=== PATIENT | female | born 1980 | race Two or more races ===

== ENCOUNTER 2021-06-28 17:43 | Emergency (ER) | payer MEDICARE, MEDICAID, SELFPAY ==
--- NOTE | ~2021-06-28 | XR_ITS ---
EXAMINATION: XR CHEST CLINICAL INFORMATION: Cough COMPARISON: None TECHNIQUE: Frontal view of the chest was obtained. FINDINGS: No convincing evidence for an acute process. Lung volumes are low but there is no obvious failure or infiltrate. No effusion. The mediastinal contours are comparable. XR/XR chest 1V IMPRESSION: No convincing evidence for an acute process.
[2021-06-28 18:34] VITALS: BP 149/92; PULSE 97; RESP 18; TEMP 37.3; O2SAT 97; BMI 37.8
[2021-06-28 19:37] VITALS: BP 158/97; PULSE 94; RESP 16; TEMP 37.2; O2SAT 98
[2021-06-28 20:01] LABS: Influenza A PCR NEGATIVE (Negative); Influenza B PCR NEGATIVE (Negative); Resp Syncy Virus RNA Qual PCR NEGATIVE (Negative); SARS COV2 PCR INHOUSE POSITIVE (Negative)
--- NOTE | 2021-06-28 20:14 | ED.URI ---
HPI - URI/Sore Throat General Chief Complaint: Upper Respiratory Symptoms Stated Complaint: COVID SYMPTOMS Time Seen by Provider: 06/28/21 19:19 Source: patient Limitations: no limitations History of Present Illness HPI Narrative: 41-year-old female presenting to the ED complaining of cough, body aches/myalgias, chills, SOB, chest discomfort when coughing, headaches x2 days. Admits is COVID-19 positive. Denies recent travel, LE edema, calf tenderness MD elicited complaint: cough Related Data Previous Rx's Medication Instructions Recorded acetaminophen 500 mg tablet 500 mg PO Q6H PRN #20 tab 06/28/21 (Tylenol Extra Strength) benzonatate 100 mg capsule 100 mg PO TID PRN #14 cap 06/28/21 (Tessalon Perles) fluticasone propionate 50 2 spray INTRANASAL DAILY #16 g 06/28/21 mcg/actuation nasal spray,suspension (Flonase Allergy Relief) Allergies Allergy/AdvReac Type Severity Reaction Status Date / Time penicillin V Allergy Unknown hives Verified 06/28/21 18:33 Penicillins [PENICILLINS] Allergy Unknown HIVES Verified 06/28/21 18:33 Sulfa (Sulfonamide Allergy Unknown HIVES Verified 06/28/21 18:33 Antibiotics) [SULFA (SULFONAMIDE ANTIBIOTICS)] sulfacetamide Allergy Unknown hives Verified 06/28/21 18:33 Review of Systems Review of Systems: Constitutional: + Fever, + Chills ENT/Mouth: No Ear Pain, + Nasal Congestion, No Sinus Pain, No Hoarseness, +sore throat, + Rhinorrhea, No Swallowing Difficulty Cardiovascular: + Chest Pain when coughing, + SOB Respiratory: + Cough, No Sputum, No Wheezing Gastrointestinal: No Nausea, No Vomiting, No Diarrhea, No Abdominal pain Musculoskeletal: No joint pain, + Myalgias Skin: No Skin Lesions, No rash Neuro: No Weakness, +headache Yes all other systems are reviewed and are negative PMFSH Past Medical History Attestation statement: The following information was validated with the patient. Social History Social History Advance Directives: No Advance Directives Information Provided: No Physical Exam Vital Signs: Vital Signs: Last Vital Signs Temp 98.9 F 06/28/21 19:37 Pulse 94 06/28/21 19:37 Resp 16 06/28/21 19:37 BP 158/97 H 06/28/21 19:37 Pulse Ox 98 06/28/21 19:37 Body Mass Index 37.8 Const: General: cooperative and healthy appearing Orientation/consciousness: patient oriented x3 Limitations: no limitations HENMT: Head: Yes normal to inspection Ears: hearing grossly normal bilaterally General nose exam: Normal external nose present Face and sinus: Yes normal facial exam Eyes: General: appearance normal, both eyes and all related structures EOM: EOMs intact bilaterally Neck: Neck: Yes normal visual inspection Resp: Effort & Inspection: normal respiratory effort Auscultation: clear to auscultation bilaterally, no rales, no rhonchi and no wheezes Cardio: Rate: regular rate Heart sounds: S1 normal heart sound present and S2 normal heart sound present GI: Inspection: Yes normal to inspection Palpation (GI): Soft to palpation, nontender, no guarding and not rigid Skin: Rashes: no rashes Wounds: no wounds Neuro: General: patient oriented x3 Gait exam (Neuro): Normal gait present Extrem: General: Yes normal to inspection, Yes no pedal edema and Yes no calf tenderness Course Course Course Narrative: -chest x-ray unremarkable Patient is COVID-19 positive. Results discussed with patient including worrisome signs and symptoms and strict return precautions MDM - URI/Sore Throat MDM Narrative Medical decision making narrative: 41-year-old female presenting to the ED complaining of cough, body aches/myalgias, chills, SOB, chest discomfort when coughing, headaches x2 days. On exam VSS, NAD, lungs CTA. Concern for COVID-19/viral syndrome. Will obtain CXR and COVID-19 testing Lab Data Labs: Lab Results 06/28/21 Range/Units 18:36 Coronavirus (PCR) POSITIVE A (Negative) Influenza Type A (PCR) NEGATIVE (Negative) Influenza Type B (PCR) NEGATIVE (Negative) RSV RNA Qual (PCR) NEGATIVE (Negative) Discharge Plan Discharge Clinical Impression: COVID-19 Patient Disposition: Home, Self-Care Instructions: COVID-19 (Coronavirus Disease 2019) (ED) Additional Instructions: YOU HAVE COVID-19 YOU NEED TO SELF ISOLATE FOR 10-14 DAYS TAKE TYLENOL AND MOTRIN AT HOME FOR BODY ACHES/FEVER MAKE SURE STAYING HYDRATED AT HOME REST STAY HYDRATED CALL YOUR DOCTOR FOR FOLLOW-UP NEEDED IF YOU DEVELOP CONSTANT WORSENING SHORTNESS BREATH, CHEST PAIN, OR FEVER UNRESOLVED WITH MEDICATIONS RETURN TO THE ED PLEASE BUY A PULSE OXIMETER AT HOME TO MONITOR HER OXYGEN, IF IT IS DROPPING INTO THE LOW 90'S OR BELOW 90 PLEASE RETURN TO THE EMERGENCY DEPARTMENT [facility] FOR COUGH, FLONASE A NASAL DECONGESTION CDC Guidelines for home isolation: - Stay away from others - WEAR A MASK if you are sick AND STAY HOME - Cover your mouth and nose with a tissue when you cough or sneeze. Dispose of tissues in a lined trash can and wash your hands immediately with soap and water for at least 20 seconds. If soap and water are not available, clean hands with alcohol-based hand aoc director combat plans officer that contains at least 60% alcohol. - Clean your hands often with soap and water for at least 20 seconds - Avoid touching your eyes, nose and mouth with unwashed hands - Do not share dishes, drinking glasses, cups, eating utensils, towels, or bedding with other people in your home. After using these items, wash them thoroughly with soap and water or put in the alteration worker. - Clean high-touch surfaces in your isolation area ( sick room and bathroom) every day; let a caregiver clean and disinfect high-touch surfaces in other areas of the home. Clean the area or item with soap and water or another detergent if it is dirty. Then, use a household disinfectant. - Limit contact with pets and animals: If you must care for a pet, wash your hands before and after interacting with them) Prescriptions: New benzonatate [[place] Perles] 100 mg capsule 100 mg PO TID PRN (Reason: cough) Qty: 14 RF: 0 acetaminophen [Tylenol Extra Strength] 500 mg tablet 500 mg PO Q6H PRN (Reason: pain or fever) Qty: 20 RF: 0 fluticasone propionate [Flonase Allergy Relief] 50 mcg/actuation spray,suspension 2 spray intranasal DAILY Qty: 16 RF: 0 Referrals: Brennon La MD [Primary Care Provider] - 1 week Stand Alone Forms: Work/School Release
== END 2021-06-28 20:33 | disposition home or self-care (01) ==
PROVIDERS: Emergency Provider Emergency Medicine; PCP Internal Medicine
DX: U07.1 COVID-19 (principal); R05 Cough; M79.10 Myalgia, unspecified site
CPT/HCPCS: 0241U; 36415; 71045; 99283

== ENCOUNTER 2023-12-22 21:57 | Emergency (ER) | payer MEDICARE, MEDICAID, SELFPAY ==
--- NOTE | ~2023-12-22 | US_ITS ---
EXAMINATION: US PELVIS CLINICAL INFORMATION: Pain. COMPARISON: Correlation made with CT performed 12/22/2023. TECHNIQUE: Ultrasound of the pelvis is performed using both transabdominal and transvaginal transducers along with Doppler. Transvaginal imaging is performed due to inadequate visualization transabdominally. FINDINGS: Uterus: The uterus is anteverted and measures 16.7 x 8.8 x 9.2 cm. Multiple uterine fibroids are noted measuring up to 5.8 cm distorting the endometrium. The double wall endometrial thickness is 1.1 mm. Adnexa: Both ovaries are visualized. There is normal color flow to the adnexa. There is no ovarian torsion. There is no pelvic ascites or fluid collection. Right ovary measures 3.3 x 2.3 x 2.7 cm. There is a 10.5 x 9.5 x 10.7 cm anechoic structure associated with the left ovary with posterior acoustic enhancement consistent with that of a cyst. The visualized left ovarian tissue appears to be within normal limits. US/US pelvic and transvaginal IMPRESSION: 1. Multiple uterine fibroids. 2. Large left ovarian cyst measuring up to 10.5 cm.
--- NOTE | ~2023-12-22 | CT_ITS ---
EXAMINATION: CT ABDOMEN AND PELVIS WITHOUT CONTRAST CLINICAL INFORMATION: Left flank pain. COMPARISON: None available. TECHNIQUE: Multidetector volumetric imaging was performed from the superior aspect of the liver through the pubic symphysis. Sagittal and coronal reformatted images were obtained on the technologist's workstation. This CT examination was performed using dose optimization techniques as appropriate, variously including the following: *Automated exposure control *Adjustment of mA and/or kV according to patient size (this includes techniques or standardized protocols for targeted exams where dose is matched to indication/reason for exam; i.e. extremities or head) *Use of iterative reconstruction technique DLP: 686 mGy-cm FINDINGS: LUNG BASES: The visualized lung bases are unremarkable. LIVER, GALLBLADDER, AND BILIARY TREE: The liver is normal in size, shape, and attenuation. No focal hepatic lesion or biliary ductal dilatation is present. The gallbladder is unremarkable with no evidence of radiopaque gallstones, gallbladder wall thickening, or obvious pericholecystic inflammatory changes. PANCREAS: Unremarkable. SPLEEN: Unremarkable. ADRENAL GLANDS: Unremarkable. KIDNEYS AND URETERS: The kidneys are normal in size, shape, and attenuation. No hydronephrosis, hydroureter, or calculi seen. No perinephric stranding. BLADDER: Unremarkable. GASTROINTESTINAL TRACT: The small and large bowel are unremarkable. The appendix is not identified. ABDOMINAL WALL: Umbilical hernia repair mesh is noted in place. LYMPH NODES: Normal. VASCULAR: Unremarkable. PELVIC VISCERA: There is a 12.4 x 8.5 x 10.5 cm low-density structure within the left adnexa abutting the uterus and left ovary with low attenuation values consistent with simple fluid. The uterus is prominent in size. OSSEOUS STRUCTURES: There is moderate L5-S1 disc degenerative change with a prominent posterior osteophyte and bilateral moderate neuroforaminal narrowing. CT/CT abdomen pelvis wo IV con IMPRESSION: 1. A 12.4 cm low-density structure within the left adnexa abutting the uterus and left ovary. This may represent a large ovarian cyst. Recommend further evaluation with pelvic ultrasound. 2. Moderate L5-S1 disc degenerative change with a prominent posterior osteophyte and bilateral moderate neuroforaminal narrowing. Fleischner guidelines were followed.
[2023-12-22 21:58] VITALS: BP 185/91; PULSE 74; RESP 14; TEMP 36.3; O2SAT 96; BMI 37.4
--- NOTE | 2023-12-22 22:12 | ED_ITS ---
HPI - Abdominal Pain General Chief Complaint: Abdominal Pain Stated Complaint: right side lwr abd to the back pain Time Seen by Provider: 12/22/23 22:03 Source: patient Mode of arrival: ambulatory Limitations: no limitations History of Present Illness HPI narrative: 43-year-old female with a history of chronic back pain and takes chronic opiates presents the ER with complaints of 4 days of left lower quadrant abdominal pain which radiates the left back with nausea. She denies any urinary symptoms, no diarrhea, constipation, vomiting, fevers or chills. Her last menstrual cycle was 1 week ago. Patient reports abdominal surgical history of umbilical hernia repair Related Data Previous Rx's Medication Instructions Recorded acetaminophen 500 mg tablet 500 mg PO Q6H PRN pain or fever 06/28/21 (Tylenol Extra Strength) #20 tabs benzonatate 100 mg capsule 100 mg PO TID PRN cough #14 caps 06/28/21 (Tessalon Perles) fluticasone propionate 50 2 spray intranasal DAILY #16 grams 06/28/21 mcg/actuation nasal spray,suspension (Flonase Allergy Relief) Allergies Allergy/AdvReac Type Severity Reaction Status Date / Time Penicillins [PENICILLINS] Allergy Unknown HIVES Verified 12/22/23 22:07 Sulfa (Sulfonamide Allergy Unknown HIVES Verified 12/22/23 22:07 Antibiotics) [SULFA (SULFONAMIDE ANTIBIOTICS)] sulfacetamide Allergy Unknown hives Verified 12/22/23 22:07 Review of Systems Review of Systems Yes all other systems are reviewed and are negative Constitutional: Reports no additional constitutional complaints, Denies body ache(s), Denies chills, Denies fever(s), Denies headache(s) and Denies weakness Eyes: Reports no additional eye complaints and Denies change in vision Reports system reviewed and no additional complaints, except as documented, Denies dizziness, Denies headache(s), Denies nasal congestion, Denies nasal discharge and Denies neck pain Cardiovascular: Reports no additional cardiovascular complaints, Denies chest pain, Denies leg edema and Denies dyspnea Respiratory: Reports no additional respiratory complaints, Denies cough and Denies dyspnea Gastrointestinal: Reports no additional gastrointestinal complaints, Reports abdominal pain, Denies diarrhea, Reports nausea and Denies vomiting Genitourinary: Reports no additional female genitourinary complaints, Denies dysuria, Denies pelvic pain, Denies flank pain, Denies urinary incontinence, Denies urinary hesitancy, Denies urinary urgency and Denies vaginal discharge Musculoskeletal: Reports no additional musculoskeletal complaints, Reports back pain, Denies arthralgias, Denies joint swelling, Denies neck pain, Denies numbness and Denies tingling Skin/Breast: Reports system reviewed and no additional complaints, except as docu and Denies rash Reports system reviewed and no additional complaints, except as documented, Denies Abnormal speech present, Denies dizziness, Denies headache(s), Denies numbness, Denies tingling and Denies weakness [facility] Social History Social History Smoked in Last 30 Days: No Use of substances other than those prescribed or required for medical reasons: No Advance Directives: No Advance Directives Information Provided: No Physical Exam ED Vital Signs: Vital Signs - 24 hr 12/22/23 21:58 12/23/23 01:04 Temperature 97.3 F 98.1 F Pulse Rate 74 62 Respiratory Rate 14 16 Blood Pressure 185/91 H 117/66 Pulse Oximetry 96 97 Oxygen Delivery Method Room Air Room Air BMI result Body Mass Index 37.4 Const General: cooperative, healthy appearing, comfortable and no acute distress Orientation/consciousness: patient oriented x3 Limitations: no limitations HENMT Head: Yes normal to inspection Ears: hearing grossly normal bilaterally General nose exam: Normal external nose present Face and sinus: Yes normal facial exam Mouth: Normal oral and palatal mucosa present Throat: Yes posterior oropharynx normal Eyes General: appearance normal, both eyes and all related structures Pupils: Equal, round and reactive pupils present Neck Neck: Yes normal visual inspection Chest Chest palpation & inspection: normal inspection of the chest Resp Effort & Inspection: normal respiratory effort Auscultation: clear to auscultation bilaterally Cardio Rate: regular rate Rhythm: regular rhythm Peripheral pulses: Peripheral pulses 2+ throughout GI Inspection: Yes normal to inspection Palpation (GI): Soft to palpation and Tenderness to palpation present (GI) (Tenderness the left lower quadrant with no rebound or guarding) Auscultation: normal bowel sounds General: Yes no CVA tenderness Back/Spine/Pelvis Back: no CVA tenderness Thoracic/Lumbar Spine: thoracic and lumbar spine normal to inspection Skin General skin exam: no rashes or lesions noted Neuro General: patient oriented x3, no focal motor deficits and normal sensation to monofilament Cranial nerves: Yes Equal, round and reactive pupils present Cognition (Neuro): normal cognition Speech: No Abnormal speech present Gait exam (Neuro): Normal gait present Motor exam (neuro): 5/5 motor strength present throughout Extrem General: Yes normal to inspection, Yes no pedal edema and Yes no calf tenderness Course Course Course Narrative: 2339-Ct shows MPRESSION: 1. A 12.4 cm low-density structure within the left adnexa abutting the uterus and left ovary. This may represent a large ovarian cyst. Recommend further evaluation with pelvic ultrasound. 2. Moderate L5-S1 disc degenerative change with a prominent posterior osteophyte and bilateral moderate neuroforaminal narrowing. Pelvic ultrasound ordered Reevaluation(s) Reevaluation #1: 0130-Sign out to Dr Alejo pending US results. Medical Decision Making Medical Decision Making [facility] Narrative: 43-year-old female with a history of chronic back pain and takes chronic opiates presents the ER with complaints of 4 days of left lower quadrant abdominal pain which radiates the left back with nausea. She denies any urinary symptoms, no diarrhea, constipation, vomiting, fevers or chills. Her last menstrual cycle was 1 week ago. Patient reports abdominal surgical history of umbilical hernia repair Tenderness on palpation to the left lower quadrant with no rebound or guarding. Will obtain labs, UA, CT Will provide IV fluids, antiemetic, analgesia Differential Diagnosis Differential Diagnoses: The differential diagnosis associated with the presentation includes Lumbar radiculopathy Pyelonephritis, renal colic, diverticular Admission/Observation Consideration of admission/observation: Escalation of care including admission/observation considered Lab Data [facility] Lab Attestation statement: I reviewed the patient's lab results. 12/22/23 22:19 12/22/23 22:19 Labs: Lab Results 12/22/23 12/22/23 Range/Units 22:19 23:22 WBC 6.7 (4.8-10.8) X10*3/uL RBC 4.70 (4.20-5.50) X10*6/uL Hgb 10.7 L (12.0-16.0) g/dl Hct 34.0 L (37.0-47.0) % MCV 72.3 L (80.0-98.0) fL MCH 22.8 L (27.0-33.0) pg MCHC 31.5 (31.0-35.0) g/dl RDW 16.6 H (11.0-16.0) % Plt Count 251 (160-400) X10*3/uL MPV 10.8 (9.4-12.3) fL Immature Gran % (Auto) 0.1 (0.0-0.4) % Neut % (Auto) 53.7 (45-73) % Lymph % (Auto) 36.8 (20-40) % [place] % (Auto) 6.1 (2-11) % Eos % (Auto) 2.7 (0-4) % Baso % (Auto) 0.6 (0-2) % Lymph # (Auto) 2.5 (1.2-4.9) X10*3/uL [place] # (Auto) 0.4 (0.1-1.2) X10*3/uL Eos # (Auto) 0.2 (0.0-0.4) X10*3/uL Baso # (Auto) 0.0 (0.0-0.2) X10*3/uL Abs Immat Gran (auto) 0.01 (0.00-0.03) X10*3/uL Absolute Neuts (auto) 3.6 (2.0-8.3) x10*3/uL Absolute Nucleated RBC 0.000 (0.0-0.012) X10*3/uL Nucleated RBC % (auto) 0.0 (0.0-0.2) /100WBC Sodium 139 (135-145) mmol/L Potassium 4.5 (3.3-5.1) mmol/L Chloride 104 (96-108) mmol/L Carbon Dioxide 27 (22-29) mmol/L Anion Gap 13 (12-20) BUN 9 (9-16) mg/dL Creatinine 1.05 (0.5-1.4) mg/dL Estim Creat Clear Calc 69.6 Estimated GFR 57 Random Glucose 98 (60-115) mg/dL Calcium 8.9 (8.4-10.2) mg/dL Total Bilirubin 0.5 (0.0-1.0) mg/dL AST 22 (5-31) U/L ALT 17 (0-31) U/L Alkaline Phosphatase 62 (39-117) U/L Total Protein 6.8 (6.5-8.0) g/dL Albumin 3.9 (3.5-5.0) g/dL Lipase 10 (8-78) U/L Urine Color Yellow Urine Appearance Clear Urine pH 8.0 (5.0-9.0) Ur Specific Kuna 1.010 (1.005-1.025) Urine Protein Negative (Neg-Trace) mg/dL Urine Glucose (UA) Negative (Negative) mg/dL Urine Ketones Negative (Negative) mg/dL Urine Blood Negative (Negative) Urine Nitrite Negative (Negative) Ur Leukocyte Esterase Negative (Negative) Urine RBC 0-2 (0-2) /HPF Urine WBC 0-5 (0-5) /HPF Ur Squamous Epith Cells 0-2 (0-2) /HPF Urine Bacteria None Seen (None Seen) Hyaline Casts 0-2 (0-2) /LPF Urine Test NEGATIVE (NEGATIVE) Independent Interpretation I performed an independent interpretation of an: Ultrasound and CT Scan Interpretation: I independently reviewed the CT scan agree with the radiology report Radiology Impression Discussion of test interpretation with radiology: I have reviewed the radiologist's reading. Radiologist Impression: [place] [id number] CT Scan Report Signed Patient: Ruben Garcia MR#: [id number] : 1980 Acct:[id number] Age/Sex: 43 / F ADM Date: 12/22/23 Loc: .ED Attending Dr: Ordering Physician: Poly Panda NP Date of Service: 12/22/23 Procedure(s): CT abdomen pelvis wo IV con Accession Number(s): [id number] cc: Brennon La III, MD; Poly Panda NP~ EXAMINATION: CT ABDOMEN AND PELVIS WITHOUT CONTRAST CLINICAL INFORMATION: Left flank pain. COMPARISON: None available. TECHNIQUE: Multidetector volumetric imaging was performed from the superior aspect of the liver through the pubic symphysis. Sagittal and coronal reformatted images were obtained on the technologist's workstation. This CT examination was performed using dose optimization techniques as appropriate, variously including the following: *Automated exposure control *Adjustment of mA and/or kV according to patient size (this includes techniques or standardized protocols for targeted exams where dose is matched to indication/reason for exam; i.e. extremities or head) *Use of iterative reconstruction technique DLP: 686 mGy-cm FINDINGS: LUNG BASES: The visualized lung bases are unremarkable. LIVER, GALLBLADDER, AND BILIARY TREE: The liver is normal in size, shape, and attenuation. No focal hepatic lesion or biliary ductal dilatation is present. The gallbladder is unremarkable with no evidence of radiopaque gallstones, gallbladder wall thickening, or obvious pericholecystic inflammatory changes. PANCREAS: Unremarkable. SPLEEN: Unremarkable. ADRENAL GLANDS: Unremarkable. KIDNEYS AND URETERS: The kidneys are normal in size, shape, and attenuation. No hydronephrosis, hydroureter, or calculi seen. No perinephric stranding. BLADDER: Unremarkable. GASTROINTESTINAL TRACT: The small and large bowel are unremarkable. The appendix is not identified. ABDOMINAL WALL: Umbilical hernia repair mesh is noted in place. LYMPH NODES: Normal. VASCULAR: Unremarkable. PELVIC VISCERA: There is a 12.4 x 8.5 x 10.5 cm low-density structure within the left adnexa abutting the uterus and left ovary with low attenuation values consistent with simple fluid. The uterus is prominent in size. OSSEOUS STRUCTURES: There is moderate L5-S1 disc degenerative change with a prominent posterior osteophyte and bilateral moderate neuroforaminal narrowing. CT/CT abdomen pelvis wo IV con IMPRESSION: 1. A 12.4 cm low-density structure within the left adnexa abutting the uterus and left ovary. This may represent a large ovarian cyst. Recommend further evaluation with pelvic ultrasound. 2. Moderate L5-S1 disc degenerative change with a prominent posterior osteophyte and bilateral moderate neuroforaminal narrowing. Fleischner guidelines were followed. Independent Historian Clinical information obtained from an independent historian. History obtained from or confirmed by: Friend Prescription Management I considered prescription management with: Pain Medication Medications Administered Discontinued Medications Generic Name Dose Route Start Last Admin Trade Name Freq PRN Reason Stop Dose Admin Sodium Chloride 1,000 mls @ 999 mls/hr 12/22/23 22:23 12/23/23 00:56 Ns IV 12/22/23 23:23 Infused .Q1H1M STA Infusion Ketorolac Tromethamine 15 mg 12/22/23 22:22 12/22/23 22:27 Ketorolac Tromethamine 15 Mg/Ml Vial IVPUSH 12/22/23 22:23 15 mg ONCE ONE Administration Morphine Sulfate 4 mg 12/22/23 22:22 12/22/23 22:27 Morphine Sulfate 4 Mg/Ml Cartridge IVPUSH 12/22/23 22:23 4 mg ONCE ONE Administration Protocol Ondansetron HCl 4 mg 12/22/23 22:22 12/22/23 22:27 Ondansetron Hcl 4 Mg/2 Ml Vial IVPUSH 12/22/23 22:23 4 mg ONCE ONE Administration Discharge Plan Discharge Clinical Impression: Ovarian cyst Patient Disposition: Still a Patient Instructions: Ovarian Cyst (ED) Additional Instructions: Take Motrin or Tylenol for pain as needed. You may also take the Percocet that you have at home Apply heat to the abdomen Follow-up with gynecology for persistent symptoms Prescriptions: No Action benzonatate [Tessalon Perles] 100 mg capsule 100 mg PO TID PRN (Reason: cough) Qty: 14 0RF acetaminophen [Tylenol Extra Strength] 500 mg tablet 500 mg PO Q6H PRN (Reason: pain or fever) Qty: 20 0RF fluticasone propionate [Flonase Allergy Relief] 50 mcg/actuation spray,suspension 2 spray intranasal DAILY Qty: 16 0RF Rx Instructions: administer into each nostril Referrals: Brennon La III, MD [Primary Care Provider] - 1 week
[2023-12-22 22:24] LABS: MANUAL DIFF FLAG NO
[2023-12-22 22:26] LABS: Basophils Percent Auto 0.6 % (0-2); Eosinophils Absolute Auto 0.2 X10*3/uL (0.0-0.4); Eosinophils Percent Auto 2.7 % (0-4); Hemoglobin 10.7 g/dl (12.0-16.0); Imm Gran Abs Auto 0.01 X10*3/uL (0.00-0.03); Imm Gran Pct Auto 0.1 % (0.0-0.4); Lymphocytes Absolute Auto 2.5 X10*3/uL (1.2-4.9); Lymphocytes Percent Auto 36.8 % (20-40); Mean Corpuscular HGB Conc 31.5 g/dl (31.0-35.0); Mean Corpuscular Hemoglobin 22.8 pg (27.0-33.0); Mean Corpuscular Volume 72.3 fL (80.0-98.0); Mean Platelet Volume 10.8 fL (9.4-12.3); Monocytes Absolute Auto 0.4 X10*3/uL (0.1-1.2); Monocytes Percent Auto 6.1 % (2-11); Neutrophils Absolute Auto 3.6 x10*3/uL (2.0-8.3); Neutrophils Percent Auto 53.7 % (45-73); Platelet Count 251 X10*3/uL (160-400); Red Cell Distribution Width 16.6 % (11.0-16.0); White Blood Count 6.7 X10*3/uL (4.8-10.8)
[2023-12-22] MEDS: Ketorolac Tromethamine 15 MG/ML VIAL IVPUSH (22:27)
[2023-12-22] MEDS: ondansetron HCL 4 MG/2 ML VIAL IVPUSH (22:27)
[2023-12-22] MEDS: Morphine Sulfate 4 MG/ML CARTRIDGE IVPUSH (22:27)
[2023-12-22] MEDS: 0.9 % Sodium Chloride 1,000 ML 999 ML IV (22:28)
[2023-12-22 22:39] LABS: Alanine Aminotransferase 17 U/L (0-31); Albumin Level 3.9 g/dL (3.5-5.0); Alkaline Phosphatase 62 U/L (39-117); Anion Gap 13 (12-20); Aspartate Amino Transferase 22 U/L (5-31); Bilirubin Total 0.5 mg/dL (0.0-1.0); Blood Urea Nitrogen 9 mg/dL (9-16); Calcium 8.9 mg/dL (8.4-10.2); Carbon Dioxide 27 mmol/L (22-29); Chloride 104 mmol/L (96-108); Creatinine Clr Calc Pharmacy 69.6; Estimated Glomerular Filt Rate 57; Glucose Random 98 mg/dL (60-115); Potassium 4.5 mmol/L (3.3-5.1); Sodium 139 mmol/L (135-145); Total Protein 6.8 g/dL (6.5-8.0)
[2023-12-22 22:49] LABS: Lipase 10 U/L (8-78)
[2023-12-22 23:38] LABS: Appearance Urine Clear; Color Urine Yellow; Glucose Urine UA Negative (Negative); Leukocyte Esterase Urine Negative (Negative); Nitrite Urine Negative (Negative); Urine Blood Negative (Negative); Urine Ketones Negative (Negative); Urine Protein Negative (Neg-Trace)
[2023-12-22 23:40] LABS: UPreg QC Valid YES; Urine Pregnancy NEGATIVE (NEGATIVE)
[2023-12-22 23:44] LABS: Bacteria Urine None Seen (None Seen); Hyaline Casts Urine 0-2 /LPF (0-2); RBC Urine 0-2 /HPF (0-2); Squamous Epithelial Cell Urine 0-2 /HPF (0-2); WBC Urine 0-5 /HPF (0-5)
[2023-12-23 01:04] VITALS: BP 117/66; PULSE 62; RESP 16; TEMP 36.7; O2SAT 97
--- NOTE | 2023-12-23 01:05 | MHC.EDTECH ---
This pct just assumed care of Pt ,vitals taken ,pt resting quietly in bed .
[2023-12-23] MEDS: oxyCODONE HCl Immed Release 5 MG TABLET 10 MG PO (01:59)
[2023-12-23 02:30] VITALS: BP 133/74; PULSE 59; RESP 16; TEMP 36.9; O2SAT 97
== END 2023-12-23 03:15 | disposition home or self-care (01) ==
PROVIDERS: Nurse Practitioner Family; Emergency Provider Emergency Medicine; PCP Internal Medicine
DX: N83.202 Unspecified ovarian cyst, left side (principal); R10.32 Left lower quadrant pain; R11.0 Nausea; G89.29 Other chronic pain; M54.50 Low back pain, unspecified; Z79.891 Long term (current) use of opiate analgesic
CPT/HCPCS: 36415; 74176; 76830; 76856; 80053; 81001; 81025; 83690; 85025; 96361; 96374; 96375; 99284; 99285; J1885; J2270; J2405

== ENCOUNTER 2024-12-20 18:57 | Emergency (ER) | payer OTHER, SELFPAY ==
--- NOTE | ~2024-12-20 | XR_ITS ---
CLINICAL HISTORY: cough 2 view chest x-ray Comparison: Chest x-ray from 06/28/2021 Findings: Low lung volumes with mild bibasilar atelectasis/pneumonitis. No lobar consolidation. No pneumothorax or pleural effusion. Imaged mediastinum and imaged osseous structures are unchanged. IMPRESSION: Low lung volumes with mild bibasilar atelectasis and/or pneumonitis. This document has been electronically signed by: Tong Colon MD on 12/20/2024 20:47:13
[2024-12-20 19:01] VITALS: BP 153/106; PULSE 115; RESP 16; TEMP 37.6; O2SAT 97; BMI 37.8
--- NOTE | 2024-12-20 19:02 | ED_ITS ---
HPI - General Adult General Chief complaint: Upper Respiratory Symptoms Stated complaint: nausea ? flu Time Seen by Provider: 12/20/24 21:24 Source: patient Mode of arrival: ambulatory Limitations: no limitations History of Present Illness ED Provider: Dr. Randa Hearn HPI narrative: Patient comes to the emergency room complaining of body aches, lightheadedness, vomiting starting today. Patient denies any near syncopal episodes or syncopal episodes. Patient denies any chest pain or shortness of breath. Related Data Previous Rx's ?Medication ?Instructions ?Recorded acetaminophen 500 mg tablet 500 mg PO Q6H PRN pain or fever 06/28/21 (Tylenol Extra Strength) #20 tabs benzonatate 100 mg capsule 100 mg PO TID PRN cough #14 caps 06/28/21 (Tessalon Perles) fluticasone propionate 50 2 spray intranasal DAILY #16 grams 06/28/21 mcg/actuation nasal spray,suspension (Flonase Allergy Relief) ibuprofen 600 mg tablet 600 mg PO Q6H PRN fever or pain 12/23/23 #30 tabs acetaminophen 500 mg tablet 500 mg PO Q6H PRN fever or pain 12/20/24 #20 tabs oseltamivir 75 mg capsule (Tamiflu) 75 mg PO BID 5 days #10 caps 12/20/24 Allergies Allergy/AdvReac Type Severity Reaction Status Date / Time Penicillins [PENICILLINS] Allergy Unknown HIVES Verified 12/20/24 19:07 Sulfa (Sulfonamide Allergy Unknown HIVES Verified 12/20/24 19:07 Antibiotics) [SULFA (SULFONAMIDE ANTIBIOTICS)] sulfacetamide Allergy Unknown hives Verified 12/20/24 19:07 Review of Systems 2 Review of Systems: Constitutional : No Weight loss, complaining of generalized malaise, chills, fatigue, myalgias ENT/Mouth : No Hearing loss, No Ear Pain, No Nasal Congestion, No Sinus Pain, No Hoarseness, No sore throat, No Rhinorrhea, No Swallowing Difficulty Eyes: No Eye Pain, No Swelling, No Redness, No Foreign Body, No Discharge, No Vision Changes Cardiovascular : No Chest Pain, No SOB, No Dyspnea on Exertion, No Orthopnea, No Edema, No Palpitations Respiratory : No Cough, No Sputum, No Wheezing, No Smoke Exposure, No Dyspnea Gastrointestinal : No Nausea, No Vomiting, No Diarrhea, No Constipation, No abdominal Pain, No Hematochezia, No Melena Genitourinary : no irregular bleeding, No Dysuria, No Urinary Frequency, No Hematuria, No Urinary Incontinence, No Urgency, No Flank Pain, No Urinary Flow Changes, No Hesitancy Musculoskeletal : No joint pain, complaining of diffuse Myalgias, No Joint Swelling Skin : No Skin Lesions, No rash Neuro : No Weakness, No Numbness, No Paresthesias, No Loss of Consciousness, No Dizziness, No Headache Psych : No Anxiety/Panic, No Depression, No SI/HI/AH/VH, No Social Issues, Heme/Lymph: No Bruising, No Bleeding,No Lymphadenopathy Endocrine : No Polyuria, No Polydipsia, No Temperature Intolerance [facility] Social History Social History Unable to assess alcohol history related to: Unknown Use of substances other than those prescribed or required for medical reasons: Unknown Advance Directives: No Advance Directives Information Provided: Yes Patient : No Physical Exam ED Vital Signs: Vital Signs - 24 hr 12/20/24 19:01 12/20/24 22:02 Temperature 99.6 F Pulse Rate 115 H Respiratory Rate 16 Blood Pressure 153/106 H Pulse Oximetry 97 97 Oxygen Delivery Method Room Air Room Air BMI result Body Mass Index 37.8 Const Other: Appearance: Alert. Oriented X3. No acute distress. Eyes: Pupils equal, round and reactive to light. ENT: Pharynx normal. Neck: Normal inspection. Neck supple. No lymph nodes noted. No crepitus CVS: Normal heart rate and rhythm. Pulses normal. Normal S1 and S2 Respiratory: No respiratory distress. Breath sounds normal. No Wheezing. No rales Abdomen: Soft and nontender. No rigidity. No distention. Skin: Skin warm and clammy. Normal skin color. Normal skin turgor. Extremities: No lower extremity edema. No Lacerations. No Rash Neuro: Oriented X 3. No motor deficit. No sensory deficit. Moving all extremities. No slurred speech. CN 2 through 12 grossly intact Psych: calm, cooperative, normal affect Course Course Course Narrative: This is an RME performed by Kathryn Miramontes [employer]: Additional HPI, ROS, PE not included below will be deferred to primary provider. Patient is a 44-year-old female who presents emergency department for evaluation of nausea, vomiting, inability to tolerate oral intake, body aches, dizziness, headache, cough, congestion. Denies any known sick contacts. She was tachycardic in the 1 teens, temp of 99.6 degrees, hypertensive 169/102 Plan: Viral serologies, grp A strep, serum labs, EKG, acetaminophen given tachycardia and low-grade temp Medications Administered Discontinued Medications Generic Name Dose Route Start Last Admin Trade Name Darrion PRN Reason Stop Dose Admin Acetaminophen 975 mg 12/20/24 19:07 12/20/24 19:10 Acetaminophen 325 Mg Tablet PO 12/20/24 19:08 975 mg ONCE ONE Administration Medical Decision Making Medical Decision Making [facility] Narrative: My interpretation of labs: Patient tested positive for influenza a, chest x-ray does not show any consolidates. Patient's oxygen saturation constant in the high 90s. Differential Diagnosis Differential Diagnoses: The differential diagnosis associated with the presentation includes (Influenza, COVID, RSV, pneumonia) Lab Data [facility] Lab Attestation statement: I reviewed the patient's lab results. 12/20/24 19:40 12/20/24 19:40 Labs: Lab Results 12/20/24 Range/Units 19:40 WBC 8.1 (4.8-10.8) X10*3/uL RBC 5.64 H (4.20-5.50) X10*6/uL Hgb 15.0 D (12.0-16.0) g/dl Hct 44.6 D (37.0-47.0) % MCV 79.1 L (80.0-98.0) fL MCH 26.6 L (27.0-33.0) pg MCHC 33.6 (31.0-35.0) g/dl RDW 13.2 (11.0-16.0) % Plt Count 115 L D (160-400) X10*3/uL MPV 12.0 (9.4-12.3) fL Immature Gran % (Auto) 0.6 H (0.0-0.4) % Neut % (Auto) 84.9 H (45-73) % Lymph % (Auto) 7.6 L (20-40) % Maries % (Auto) 5.4 (2-11) % Eos % (Auto) 1.0 (0-4) % Baso % (Auto) 0.5 (0-2) % Lymph # (Auto) 0.6 L (1.2-4.9) X10*3/uL Maries # (Auto) 0.4 (0.1-1.2) X10*3/uL Eos # (Auto) 0.1 (0.0-0.4) X10*3/uL Baso # (Auto) 0.0 (0.0-0.2) X10*3/uL Abs Immat Gran (auto) 0.05 H (0.00-0.03) X10*3/uL Absolute Neuts (auto) 6.9 (2.0-8.3) x10*3/uL Absolute Nucleated RBC 0.000 (0.0-0.012) X10*3/uL Nucleated RBC % (auto) 0.0 (0.0-0.2) /100WBC Smear Tech's Comments VERIFIED Sodium 138 (135-145) mmol/L Potassium 4.4 (3.3-5.1) mmol/L Chloride 109 H (96-108) mmol/L Carbon Dioxide 17 L (22-29) mmol/L Anion Gap 16 (12-20) BUN 8 L (9-16) mg/dL Creatinine 0.87 (0.5-1.4) mg/dL Estim Creat Clear Calc 87.0 Estimated GFR > 60 Random Glucose 117 H (60-115) mg/dL Calcium 9.1 (8.4-10.2) mg/dL Total Bilirubin 0.9 (0.0-1.0) mg/dL AST 39 H (5-31) U/L ALT 27 (0-31) U/L Alkaline Phosphatase 64 (39-117) U/L Total Protein 8.0 (6.5-8.0) g/dL Albumin 4.2 (3.5-5.0) g/dL Lipase 10 (8-78) U/L Influenza Type A (PCR) POSITIVE A (Negative) Influenza Type B (PCR) NEGATIVE (Negative) RSV RNA Qual (PCR) NEGATIVE (Negative) SARS-CoV-2 RNA (RT-PCR) NEGATIVE (Negative) S. pyogenes GrpA ALENA Negative (Negative) Discharge Plan Discharge Clinical Impression: Influenza Patient Disposition: Home, Self-Care Instructions: Influenza (ED) Additional Instructions: Please follow-up with your primary care physician tomorrow. If you have any worsening or new symptoms, please return to the emergency room or call 911 Prescriptions: New oseltamivir [Tamiflu] 75 mg capsule 75 mg PO BID 5 Days Qty: 10 0RF acetaminophen 500 mg tablet 500 mg PO Q6H PRN (Reason: fever or pain) Qty: 20 0RF No Action benzonatate [Tessalon Perles] 100 mg capsule 100 mg PO TID PRN (Reason: cough) Qty: 14 0RF acetaminophen [Tylenol Extra Strength] 500 mg tablet 500 mg PO Q6H PRN (Reason: pain or fever) Qty: 20 0RF fluticasone propionate [Flonase Allergy Relief] 50 mcg/actuation spray,suspension 2 spray intranasal DAILY Qty: 16 0RF Rx Instructions: administer into each nostril ibuprofen 600 mg tablet 600 mg PO Q6H PRN (Reason: fever or pain) Qty: 30 0RF Print Language: Tajik
--- NOTE | 2024-12-20 19:07 | ECG_ITS ---
Test Reason : DIZZINESS Blood Pressure : */* mmHG Vent. Rate : 112 BPM Atrial Rate : 112 BPM P-R Int : 178 ms QRS Dur : 90 ms QT Int : 316 ms P-R-T Axes : 23 43 10 degrees QTcB Int : 431 ms Sinus tachycardia Otherwise normal ECG No previous ECGs available Referred By: Cherie Miramontes Electronically Signed By: AME HOOKS MD
[2024-12-20] MEDS: Acetaminophen 325 MG TABLET 975 MG PO (19:10)
[2024-12-20 19:54] LABS: Basophils Percent Auto 0.5 % (0-2); Eosinophils Absolute Auto 0.1 X10*3/uL (0.0-0.4); Hematocrit 44.6 % (37.0-47.0); Imm Gran Abs Auto 0.05 X10*3/uL (0.00-0.03); Imm Gran Pct Auto 0.6 % (0.0-0.4); Lymphocytes Absolute Auto 0.6 X10*3/uL (1.2-4.9); Lymphocytes Percent Auto 7.6 % (20-40); MANUAL DIFF FLAG SCAN; Mean Corpuscular HGB Conc 33.6 g/dl (31.0-35.0); Mean Corpuscular Hemoglobin 26.6 pg (27.0-33.0); Mean Corpuscular Volume 79.1 fL (80.0-98.0); Monocytes Absolute Auto 0.4 X10*3/uL (0.1-1.2); Monocytes Percent Auto 5.4 % (2-11); Neutrophils Absolute Auto 6.9 x10*3/uL (2.0-8.3); Neutrophils Percent Auto 84.9 % (45-73); PLT CLUMP 1; Red Blood Count 5.64 X10*6/uL (4.20-5.50); Red Cell Distribution Width 13.2 % (11.0-16.0); SCAN SMEAR FLAG 1
[2024-12-20 19:55] LABS: White Blood Count 8.1 X10*3/uL (4.8-10.8)
[2024-12-20 19:58] LABS: IDNOW Serial# 58CA691E; Strep A Nucleic Acid Negative (Negative)
[2024-12-20 20:05] LABS: Alanine Aminotransferase 27 U/L (0-31); Albumin Level 4.2 g/dL (3.5-5.0); Alkaline Phosphatase 64 U/L (39-117); Anion Gap 16 (12-20); Aspartate Amino Transferase 39 U/L (5-31); Bilirubin Total 0.9 mg/dL (0.0-1.0); Blood Urea Nitrogen 8 mg/dL (9-16); Calcium 9.1 mg/dL (8.4-10.2); Carbon Dioxide 17 mmol/L (22-29); Chloride 109 mmol/L (96-108); Estimated Glomerular Filt Rate > 60; Glucose Random 117 mg/dL (60-115); Lipase 10 U/L (8-78); Potassium 4.4 mmol/L (3.3-5.1); Sodium 138 mmol/L (135-145)
[2024-12-20 20:16] LABS: Platelet Count 115 X10*3/uL (160-400)
[2024-12-20 20:17] LABS: SLIDE REVIEW VERIFIED
[2024-12-20 20:23] LABS: Influenza A PCR POSITIVE (Negative); Influenza B PCR NEGATIVE (Negative); Resp Syncy Virus RNA Qual PCR NEGATIVE (Negative); SARS COV2 PCR INHOUSE NEGATIVE (Negative)
[2024-12-20 22:02] VITALS: O2SAT 97
[2024-12-20 22:22] VITALS: BP 00/00; PULSE 65; RESP 16; TEMP 37.1; O2SAT 97
== END 2024-12-20 22:23 | disposition home or self-care (01) ==
PROVIDERS: Nurse Practitioner Family; Emergency Provider Emergency Medicine; PCP Internal Medicine
DX: J10.1 Influenza due to other identified influenza virus with other respiratory manifestations (principal); M79.10 Myalgia, unspecified site; R42 Dizziness and giddiness; R11.2 Nausea with vomiting, unspecified; R00.0 Tachycardia, unspecified; Z79.899 Other long term (current) drug therapy; Z03.818 Encounter for observation for suspected exposure to other biological agents ruled out
CPT/HCPCS: 0241U; 36415; 71046; 80053; 83690; 85025; 87651; 93005; 99283; 99284

== ENCOUNTER → 2024-12-20 19:03 | Outpatient (BNV) | payer MEDICARE, MEDICAID, SELFPAY | PROVIDERS: Visit Provider Radiology Neuroradiology | DX: R05.9 Cough, unspecified (principal) | CPT/HCPCS: 71046 ==

== ENCOUNTER → 2024-12-20 19:07 | Outpatient (BNV) | payer OTHER, SELFPAY | PROVIDERS: Emergency Provider Emergency Medicine; PCP Internal Medicine; Visit Provider Internal Medicine Cardiovascular Disease | DX: R42 Dizziness and giddiness (principal); R00.0 Tachycardia, unspecified | CPT/HCPCS: 93010 ==

== ENCOUNTER 2025-04-19 10:17 | Outpatient (REF) | payer OTHER, SELFPAY ==
--- OUTSIDE RECORDS SUMMARY | 2025-04-19 11:27 | XMS_ITS | Clinical Summary ---
Author Organization [facility] Address [address] [place] [address] Phone Care Team Providers Care Production Recorder Name Role Phone Brennon La MD Primary Care Provider [phone] Allergies Active Allergy Reactions Criticality Noted Date Comments Penicillin G Potassium 01/26/2009 Penicillins: Childhood/ hives Sulfacetamide Sodium 01/26/2009 Sulfate: Childhood/ hives Medications cetirizine (ZyrTEC) 10 mg capsule Take 1 capsule (10 mg total) by mouth 1 (one) time each day. 4 Active cholecalciferol (VITAMIN D-3) 50 mcg (2,000 unit) tablet Take 1 tablet (2,000 Units total) by mouth 1 (one) time each day. 3 Active pregabalin (LYRICA) 50 mg capsule Take 1 capsule (50 mg total) by mouth 1 (one) time each day in the evening. 4 Active ibuprofen (ADVIL,MOTRIN) 800 mg tablet Take 1 tablet (800 mg total) by mouth every 8 (eight) hours if needed for mild pain. Take by mouth every 8 (eight) hours as needed for pain. 90 tablet 1 5 Active oxyCODONE-aceta minophen (PERCOCET) 5-325 mg per tablet Take 1 tablet by mouth 4 (four) times a day. Take 1 Tablet by mouth 4 times daily. Max Daily Amount: 4 tablets 112 tablet 5 Active oxyCODONE-aceta minophen (PERCOCET) 5-325 mg per tablet Take 1 tablet by mouth 4 (four) times a day. Take 1 Tablet by mouth 4 times daily. Max Daily Amount: 4 tablets 112 tablet 5 04/02/20 25 Discontinu ed(Reorder ) Active Problems Problem Noted Date Diagnosed Date Prediabetes 09/29/2024 Chronic ear infection 08/19/2024 Overview (08/19/2024): pe tubes in place Chronic low back pain 08/19/2024 Lumbar disc herniation 09/15/2018 Gout 01/16/2018 Vitamin D deficiency 09/17/2014 Obese 02/02/2011 Dermatophytosis of scalp 08/01/2009 Encounters Date Type Department Care Team Description 03/12/2025 10:24 AM EDT - 03/12/2025 11:59 PM EDT Hospital Encounter [address] [phone] Lumbar disc herniation Discharge Disposition: Home or Self Care 03/12/2025 10:24 AM EDT - 03/12/2025 11:59 PM EDT Hospital Encounter [address] [phone] Chronic right shoulder pain Discharge Disposition: Home or Self Care 03/12/2025 10:24 AM EDT - 03/12/2025 11:59 PM EDT Hospital Encounter [address] [phone] Neck pain Discharge Disposition: Home or Self Care 03/12/2025 9:45 AM EDT Office Visit Adult Medicine [address] [phone] Brennon La MD Lumbar disc herniation (Primary Dx); Obesity (BMI 30-39.9); Chronic right shoulder pain; Neck pain; Bilateral hearing loss, unspecified hearing loss type; Anemia, unspecified type; Elevated blood pressure reading in office without diagnosis of hypertension 01/27/2025 11:30 AM EDT Office Visit Adult Medicine [address] [phone] Ceci Yang PA Encounter for long-term (current) use of medications (Primary Dx); Chronic bilateral low back pain with left-sided sciatica; Prediabetes; Class 2 obesity without serious comorbidity with body mass index (BMI) of 36.0 to 36.9 in adult, unspecified obesity type; Elevated blood pressure reading from Last 3 Months Immunizations Name Administration Dates Next Due Influenza trivalent, with preservative (Fluzone; Afluria) 6mo and older 11/21/2015,09/17/2014,08/20/2013,2011,08/01/2009 Tdap Tetanus diptheria acell ular pertussis (Boostrix; Adacel) 7yo and older 08/01/2009 Surgical History Surgery Date Site/Laterality Comments TYMPANOSTOMY TUBE PLACEMENT PROCEDURE: HISTORICAL PE TUBES HERNIA REPAIR PROCEDURE: REPAIR UMBILICAL HERNIA TUBAL LIGATION PROCEDURE: HISTORICAL TUBAL LIGATION Medical History Medical History Date Comments Chronic ear infection DX:Chronic ear infection; COMMENT: pe tubes in place Chronic low back pain DX:Chronic low back pain Dermatophytosis of scalp and [place] 08/01/2009 DX:Dermatophytosis of scalp and palomino Obese 02/02/2011 DX:Obese Family History Medical History Relation Name Comments Breast cancer Aunt pat Diabetes Father's side Hypertension Mother Diabetes Mother's side 1 Breast cancer Mother's side 2 cousin Other cancer Paternal Grandmother Relation Name Status Comments Aunt pat Brother Alive Daughter Alive YOB 2002 Father Alive Father's side Maternal Grandfather Maternal Grandmother Mother Alive Mother's side 1 Mother's side 2 cousin Alive Paternal Grandfather Paternal Grandmother Alive Sister Alive Son Alive YOB 1998 Social History Tobacco Use Types Packs/Day Years Used Date Smoking Tobacco: Never Smokeless Tobacco: Never Alcohol Use Standard Drinks/Week Comments Yes 0 (1 standard drink = 0.6 oz pur e alcohol) Housing Instability Answer Date Recorde d Are you worried that in the next 2 months you may not have stable housing? No 01/04/2025 Food Access & Nutrition Answer Date Rec orded Do you have access to a vari ety of food including fruits and vegetables? Yes 01/04/2025 Financial Risk Answer Date Recorded How hard is it for you to pa y for the very basics like food, housing, medical care, and air conditioning / heating? Not very hard 01/04/2025 Transportation Answer Date Recorded Has the lack of transportati on kept you from meetings, work, or from getting things needed for daily living? No 01/04/2025 Has the lack of transportati on kept you from medical appointments or from getting medications? Not on file 01/04/2025 Food Risk Answer Date Recorded Within the past 12 months we worried whether our food would run out before we got money to buy more. Never true 01/04/2025 Within the past 12 months th e food we bought just didn't last and we didn't have money to get more. Never true 01/04/2025 Living Situation Answer Date Recorded What is your living situation? 0 01/04/2025 Comments Unknown Sex and Gender Information Value Date Recorded Sex Assigned at Not on file Legal Sex Female 10:01 AM EST Gender Identity Not on file Sexual Orientation Not on file Obstetrics History Last Filed Vital Signs Vital Sign Reading Time Taken Comments Blood Pressure 135/94 03/12/2025 9:58 AM EDT Pulse 71 03/12/2025 9:58 AM EDT Temperature 36.3 ??C (97.3 ??F) 03/12/2025 9:58 AM ED T Respiratory Rate 15 03/12/2025 9:58 AM EDT Oxygen Saturation 98% 01/27/2025 11:24 AM EDT Inhaled Oxygen Concentration - - Weight 93 kg (205 lb) 03/12/2025 9:58 AM EDT Height 160 cm (5' 2.99 ) 03/12/2025 9:58 AM EDT Body Mass Index 36.32 03/12/2025 9:58 AM EDT Plan of Treatment Upcoming Encounters Date Type Department Care Team (Late st Contact Info) Description 06/29/2025 11:00 AM EDT Office Visit Adult Medicine [address] [phone] Ceci Yang PA [address] [place] [address] 07/27/2025 11:15 AM EDT Office Visit Bariatric Surgery - [place] [address] [phone] Carina Sánchez MD 175 [facility] [address] [place] [address] 09/29/2025 9:45 AM EST Office Visit Adult Medicine [address] [phone] Brennon La MD [address] [place] [phone] 12/30/2025 9:45 AM EST Office Visit Adult Medicine [address] [phone] Brennon La MD [address] [place] [phone] Health Maintenance Due Date Last Done Comments Hepatitis B Vaccines (1 of 3 - 19+ 3-dose series) 1998 Cervical Cancer Screening: Pap Smear 02/13/2015 02/14/2012, 02/14/2012 DTaP,Tdap,and Td Vaccines (2 - Td or Tdap) 08/01/2019 08/01/2009 Colorectal Cancer Screening: Colonoscopy 10/19/2022 HIV Screening 10/19/2022 Hepatitis C Screening 10/19/2022 Medicare Annual Wellness Visit 10/19/2022 COVID-19 Vaccine ( season) 2024 Influenza Vaccine (Season Ended) 2025 11/21/2015, 09/17/2014, 08/20/2013, Additional history exists Depression Screening 01/04/2026 01/04/2025 Social Influencers of Health Screening 01/04/2026 01/04/2025 Breast Cancer Screening 08/17/2026 08/17/2024, 08/17 Cholesterol Screening (Lipid Panel) 07/01/2029 07/01/2024, 07/01/2024 HIB Vaccines Aged Out No longer eligi ble based on patient's age to complete this topic HPV Vaccines Aged Out No longer eligi ble based on patient's age to complete this topic Hepatitis A Vaccines Aged Out No long er eligible based on patient's age to complete this topic IPV Vaccines Aged Out No longer eligi ble based on patient's age to complete this topic MMR Vaccines Aged Out No longer eligi ble based on patient's age to complete this topic Meningococcal ACWY Vaccine Aged Out N o longer eligible based on patient's age to complete this topic Meningococcal B Vaccine Aged Out No l onger eligible based on patient's age to complete this topic Pneumococcal Vaccine: Pediatrics (0 to 5 Years) and At-Risk Patients (6 to 64 Years) Aged Out No longer eligible based on patient's age to complete this topic RSV Immunization Patients Under 20 months Aged Out No longer eligible based on patient's age to complete this topic Varicella Vaccines Aged Out No longer eligible based on patient's age to complete this topic Goals Goal Patient Goal Type Associated Problems Recent Progress Patient-Stated? Author No pain General Yes Tarik Jimenez, PT STG 8 visits from [facility] No Tarik Jimenez, PT Note: Pt will improve lumbar flexion to >75 deg Pt will improve lumbar ext to >15 deg Pt will be able perform full standard bridge to allow improved bed mobility Pt will hip add strength to 3+/5 LTG 14 visits from [facility] No Tarik Jimenez, PT Note: Pt will wake <3 x/wk due to back pain Pt will be able to sit through a 2 hr movie without being limited by back pain Pt will be able to mop/vacuum home without having to take breaks due to back pain Pt will be able to lift/carry grandchildren prn Procedures Procedure Name Priority Date/Time Associated Diagnosis Comments XR CERVICAL SPINE 4-5 VIEWS Routine 03/12/2025 10:45 AM EDT Neck pain XR SHOULDER 2+ VIEWS RIGHT Routine 03/12/2025 10:45 AM EDT Chronic right shoulder pain XR LUMBAR SPINE 4+ VIEWS Routine 03/12/2025 10:45 AM EDT Lumbar disc herniation DRUG ABUSE SCREEN 8A PANEL, URINE Routine 01/27/2025 12:09 PM EDT Encounter for long-term (current) use of medications Chronic bilateral low back pain with left-sided sciatica SCREENING MAMMOGRAPHY BI 2-VIEW BREAST INC CAD Routine 08/17/2024 9:19 AM EDT Encounter for screening mammogram for malignant neoplasm of breast LIPID PANEL Routine 07/01/2024 HM HPV Routine 02/14/2012 from Last 3 Months or Most Recently Relevant to Health Maintenance Results * XR Cervical Spine 4-5 Views (03/12/2025 10:45 AM EDT) Anatomical Region Laterality Modality Spine, C-spine Radiographic Kamryn ging 03/12/2025 12:0 5 PM EDT Impressions 03/12/2025 12:09 PM EDT No fracture or dislocation of the cervical spine. -------- FINAL REPORT -------- Dictated By: Caro López Dictated Date: 03/12/2025 12:05 ET Assigned Physician: Caro López Reviewed and Electronically Signed By: Caro López Signed Date: 03/12/2025 12:09 ET Workstation ID: [id number] Transcribed By: Self Edit Transcribed Date: 03/12/2025 12:05 ET Narrative 03/12/2025 12:09 PM EDT HISTORY: neck pain TECHNIQUE: ??4 views of the cervical spine COMPARISON: Cervical spine radiograph from 04/11/2022 FINDINGS: The cervical spine is visualized from C1-C6. ??Vertebral body height and disc spaces are preserved. The cervical alignment is maintained without spondylolisthesis. ??Mild uncovertebral arthropathy is present. ??No acute fracture or dislocation is seen. There is no prevertebral soft tissue swelling. Procedure Note Caro López MD - 03/12/2025 HISTORY: neck pain TECHNIQUE: 4 views of the cervical spine COMPARISON: Cervical spine radiograph from 04/11/2022 FINDINGS: The cervical spine is visualized from C1-C6. Vertebral body height anddisc spaces are preserved. The cervical alignment is maintained withoutspondylolisthesis. Mild uncovertebral arthropathy is present. No acutefracture or dislocation is seen. There is no prevertebral soft tissueswelling. IMPRESSION: No fracture or dislocation of the cervical spine. -------- FINAL REPORT -------- Dictated By: Caro López Dictated Date: 03/12/2025 12:05 ET Assigned Physician: Caro López Reviewed and Electronically Signed By: Caro López Signed Date: 03/12/2025 12:09 ET Workstation ID: [id number] Transcribed By: Self Edit Transcribed Date: 03/12/2025 12:05 ET us Brennon La MD IMG XR PROCEDURES Final Result * XR Shoulder 2+ Views Right (03/12/2025 10:45 AM EDT) Anatomical Region Laterality Modality Upper Extremities, Shoulder Right Radi ographic Imaging 03/12/2025 1:15 PM EDT Impressions 03/12/2025 1:17 PM EDT No acute fracture or dislocation of the right shoulder. ?? -------- FINAL REPORT -------- Dictated By: Caro López Dictated Date: 03/12/2025 13:15 ET Assigned Physician: Caro López Reviewed and Electronically Signed By: Caro López Signed Date: 03/12/2025 13:17 ET Workstation ID: [id number] Transcribed By: Self Edit Transcribed Date: 03/12/2025 13:15 ET Narrative 03/12/2025 1:17 PM EDT HISTORY: shoulder pain TECHNIQUE: 4 views of the right shoulder COMPARISON: None FINDINGS: No acute fracture or dislocation is seen. There is no evidence of malalignment. The AC joint is intact. Procedure Note Caro López MD - 03/12/2025 HISTORY: shoulder pain TECHNIQUE: 4 views of the right shoulder COMPARISON: None FINDINGS: No acute fracture or dislocation is seen. There is no evidence ofmalalignment. The AC joint is intact. IMPRESSION: No acute fracture or dislocation of the right shoulder. -------- FINAL REPORT -------- Dictated By: Caro López Dictated Date: 03/12/2025 13:15 ET Assigned Physician: Caro López Reviewed and Electronically Signed By: Caro López Signed Date: 03/12/2025 13:17 ET Workstation ID: [id number] Transcribed By: Self Edit Transcribed Date: 03/12/2025 13:15 ET us Brennon La MD IMG XR PROCEDURES Final Result * XR Lumbar Spine 4+ Views (03/12/2025 10:45 AM EDT) Anatomical Region Laterality Modality Spine, L-spine Radiographic Kamryn ging 03/12/2025 1:2 1 PM EDT Impressions 03/12/2025 1:28 PM EDT No acute fracture or dislocation of the lumbar spine. -------- FINAL REPORT -------- Dictated By: Caro López Dictated Date: 03/12/2025 13:21 ET Assigned Physician: Caro López Reviewed and Electronically Signed By: Caro López Signed Date: 03/12/2025 13:28 ET Workstation ID: [id number] Transcribed By: Self Edit Transcribed Date: 03/12/2025 13:21 ET Narrative 03/12/2025 1:28 PM EDT HISTORY: lumbago worsening pain hx of lumbar disc disease TECHNIQUE: 4 views of the lumbar spine COMPARISON: None FINDINGS: Vertebral body height is maintained. ??Decreased disc height at L5-S1 with endplate sclerosis. ??No acute fracture or dislocation is seen. ??The spinal alignment is well maintained without evidence of spondylolisthesis. ??No significant neural foraminal stenosis. ??The sacroiliac joints are unremarkable. ??Large amount stool throughout the colon. Procedure Note Caro López MD - 03/12/2025 HISTORY: lumbago worsening pain hx of lumbar disc disease TECHNIQUE: 4 views of the lumbar spine COMPARISON: None FINDINGS: Vertebral body height is maintained. Decreased disc height at L5-S1 withendplate sclerosis. No acute fracture or dislocation is seen. The spinalalignment is well maintained without evidence of spondylolisthesis. Nosignificant neural foraminal stenosis. The sacroiliac joints areunremarkable. Large amount stool throughout the colon. IMPRESSION: No acute fracture or dislocation of the lumbar spine. -------- FINAL REPORT -------- Dictated By: Caro López Dictated Date: 03/12/2025 13:21 ET Assigned Physician: Caro López Reviewed and Electronically Signed By: Caro López Signed Date: 03/12/2025 13:28 ET Workstation ID: [id number] Transcribed By: Self Edit Transcribed Date: 03/12/2025 13:21 ET Brennon La MD IMG XR PROCEDURES Final Result * (ABNORMAL) Drug abuse screen 8a panel, urine (01/27/2025 12:09 PM EDT) Amphetamine Screen, Ur Negative Negative LAB CHEMISTRY METHOD 5 6:51 PM EDT [facility] Comment:Certain OTC medicati ons containing ephedrine, phenylephrine, pseudoephedrine and phenylpropanolamine can cause false positive results. Barbiturate Screen, Ur Negative Negative LAB CHEMISTRY METHOD 5 6:51 PM EDT [facility] Benzodiazepine Screen, Ur Negative Negative LAB CHEMISTRY METHOD 5 6:51 PM EDT [facility] Cocaine Screen, Ur Negative Negative LAB CHEMISTRY METHOD 5 6:51 PM EDT [facility] Opiate Screen, Ur Positive(A ) Negative LAB CHEMISTRY METHOD 5 6:51 PM EDT [facility] Cannabinoid (THC) Screen, Ur Negative Negative LAB CHEMISTRY METHOD 5 6:51 PM EDT [facility] Comment:Specimens from patie nts taking pantoprazole sodium (Protonix) have been shown to produce false positive results. Oxycodone Screen, Ur Positive(A ) Negative LAB CHEMISTRY METHOD 5 6:51 PM EDT [facility] Fentanyl, Ur Negative Negative LAB CHEMISTRY METHOD 5 6:51 PM EDT [facility] Urine Urine specimen obtained by clean catch procedure / Unknown Non-blood Collection / Unknown 01/27/2025 12:09 PM EDT 01/27/2025 12:09 PM EDT Narrative [facility] - 01/27/2025 6:51 PM EDT Assay cutoffs: Amphetamines ? 1000 ng/mL Barbiturates ?200 ng/mL Benzodiazepines ?? 200 ng/mL Cocaine ? 300 ng/mL Fentanyl ?1 ng/mL Opiates ? 300 ng/mL Oxycodone ? 100 ng/mL THC ?50 ng/mL Semi-quantitative assay for screening purposes only. Unconfirmed screening result should not be used for non-medical purposes. *ALTERNATE METHOD CONFIRMATION DONE UPON REQUEST ONLY* Ceci Yang [place] LAB URINE ORDERABLES Fi nal Result [facility] [address] [place] [address], * SCREENING MAMMOGRAPHY BI 2-VIEW BREAST INC CAD (08/17/2024 9:19 AM EDT) Anatomical Region Laterality Modality Radiographic Kamryn ging 08/14/2024 9:57 AM EDT Narrative 08/17/2024 8:20 PM EDT This is a summary report. The complete report is available in the patient's medical record. If you cannot access the medical record, please contact the sending organization for a detailed fax or copy. Exam: Screening mammogram Findings: Digital bilateral full-field screening mammography is performed with tomosynthesis and interpreted with the aid of computer-aided detection. ??This is a baseline exam. Breast parenchyma is composed of scattered fibroglandular densities. ??No suspicious mass, architectural distortion, or suspicious calcifications. Impression: No mammographic evidence of malignancy. BI-RADS 1 - negative [address] [id number] Procedure Note Alesia Herzog MD - 09/08/2024 This is a summary report. The complete report is available in thepatient's medical record. If you cannot access the medical record, pleasecontact the sending organization for a detailed fax or copy. Exam: Screening mammogram Findings: Digital bilateral full-field screening mammography is performedwith tomosynthesis and interpreted with the aid of computer-aideddetection. This is a baseline exam. Breast parenchyma is composed of scattered fibroglandular densities. Nosuspicious mass, architectural distortion, or suspicious calcifications. Impression: No mammographic evidence of malignancy. BI-RADS 1 - negative [address] [id number] Result [facility] Brennon La MD IMG XR PROCEDURES Final Result * (ABNORMAL) Lipid panel (07/01/2024) [facility] LDL/HDL Ratio 3 0 - 4 Triglycerides 190(A) 0 - 150 mg/dL Cholesterol 171 0 - 200 mg/dL HDL 60 >=40 mg/dL LDL Cholesterol 73 0 - 100 mg/dL Blood Venous blood specimen / Unknown Historical Provider LAB BLOOD ORDERABLES Shazia l Result * Cervical Cancer Screening: HPV (02/14/2012) [facility] Cervical Cancer Screening: HPV positive,a bstracted Result [facility] Historical Provider HEALTH MAINTENANCE Final Result from Last 3 Months or Most Recently Relevant to Health Maintenance Insurance [facility] Care Teams Production Recorder Relationship Specialty Start Date End Date Brennon La MD [address] [place] [phone] PCP - General 01/26/09
== END 2025-04-19 10:18 | disposition home or self-care (01) ==
LOC: HO.SH 10:17
PROVIDERS: Visit Provider Internal Medicine
DX: Z01.118 Encounter for examination of ears and hearing with other abnormal findings (principal); H90.3 Sensorineural hearing loss, bilateral
CPT/HCPCS: 92557; 92567